=== PATIENT | female | born 1940 | race American Indian/Alaskan Native ===

== ENCOUNTER 2017-12-16 06:01 | Day surgery (SDC) | payer MEDICARE ==
[2017-12-09 09:41] VITALS: BMI 24.0
[2017-12-16] MEDS ORDERED: Dexamethasone 4 mg/1 ml ONE (07:23)
[2017-12-16] MEDS ORDERED: Liquid Adhesive TOP ONE (07:23)
[2017-12-16] MEDS ORDERED: Lidocaine 1% Inj (20ml) ONE (07:24)
[2017-12-16] MEDS ORDERED: Bupivacaine 0.5% Inj(30mL) ONE (07:24)
[2017-12-16] MEDS ORDERED: Propofol 10 mg/ml Inj (20 ML) ONE (07:27)
[2017-12-16] MEDS ORDERED: Midazolam 2 MG/2 ML VIAL ONE (07:31)
[2017-12-16 07:43] VITALS: RESP 18
[2017-12-16] MEDS ORDERED: Bupivacaine 0.5% Inj(30mL) IJ ONE (07:50)
[2017-12-16] MEDS ORDERED: Lidocaine 1% Inj (20ml) IJ ONE (07:50)
[2017-12-16] MEDS ORDERED: Dexamethasone 4 mg/1 ml IVP ONE (08:25)
[2017-12-16] MEDS ORDERED: Oxycodone/Acetaminophen 5/325 mg Tab PO PRN ×2 (08:33)
--- NOTE | 2017-12-16 08:35 | PCM.SURG1 ---
Surgeon's Initial Post Op Note - Surgeon's Notes Surgeon: Dr. Jaqcues Oakes, DPM Sizer Hand: Dr. Jamin Sanchez, PGY2; Dr. Idalmis Chavez, PGY1 Type of Anesthesia: IV Sedation, Local Anesthesia Administered By: Dr. Norwood Pre-Operative Diagnosis: Painful hammertoe of right fifth digit Operative Findings: See dictation report. M- 4-0 vicryl suture, 3-0 Prolene. I - Preop: 10 cc 1:1 mix of 0.5% marcaine plain, 1% lidocaine plain Post op: 0.5 cc dexamethasone 4mg/ml Post-Operative Diagnosis: Same Operation Performed: Arthroplasty of proximal phalanx right fifth digit Specimen/Specimens Removed: Bone and soft tissue of right fifth digit Estimated Blood Loss: EBL {In ML}: 1 Blood Products Given: N/A Drains Used: No Drains Post-Op Condition: Good Date of Surgery/Procedure: 12/16/17 Time of Surgery/Procedure: 08:35
[2017-12-16] MEDS ORDERED: Sodium Chloride 0.9% 1,000 ML IV SCH (08:45)
[2017-12-16 09:58] VITALS: TEMP 97.8
[2017-12-16 10:47] VITALS: BP 103/53; PULSE 49; O2SAT 99
--- NOTE | 2017-12-16 11:14 | RAD ---
Date of service: 12/16/2017 PROCEDURE: Right Foot Radiographs. HISTORY: s/p right foot surgery COMPARISON: None. FINDINGS: BONES: There has been resection of the distal aspect of the 5th proximal phalanx. The foot is otherwise unremarkable JOINTS: Normal. SOFT TISSUES: Normal. OTHER FINDINGS: None. IMPRESSION: There has been resection of the distal aspect of the 5th proximal phalanx. The foot is otherwise unremarkable
--- NOTE | 2017-12-16 12:52 | OP ---
PROCEDURE DATE: 12/16/2017 SURGEON: Jacques Oakes DPM. ASSISTANTS: Jamin Sanchez DPM, PGY-[address] Idalmis Chavez, PGY-1. ANESTHESIOLOGIST: Billy Norwood MD. ANESTHESIA: IV sedation with local. PREOPERATIVE DIAGNOSIS: Painful contracted hammertoe of right fifth digit. POSTOPERATIVE DIAGNOSIS: Painful contracted hammertoe of right fifth digit. NAME OF PROCEDURE: Right fifth digit arthroplasty of proximal phalanx. INDICATIONS: The patient is a 77-year-old with the above-mentioned diagnosis. The patient has exhausted all conservative treatment at this time and now opts for surgical intervention. The patient signed the consent after careful explanation of risks, benefits, complications and alternatives of surgical procedure. No guarantees were given nor implied. N.p.o. status was confirmed prior to taking the patient to the OR. PREOPERATIVE: The patient was brought into the operating room and placed on the operating room table in a supine position. A time-out was performed for identification of the correct patient and procedure. After induction of IV sedation, the patient received a total of 10 mL of 1:1 mixture of 0.5% Marcaine plain and 1% lidocaine plain in a local block fashion at the base of the right fifth digit. The right lower extremity was then prepped and draped in the normal sterile manner and the procedure began. An ankle tourniquet at a pressure setting of 250 mmHg was utilized for the entirety of the procedure. DESCRIPTION OF PROCEDURE: Procedure 1, attention was then turned to the right fifth digit where a hypertrophic callus formation was noted on the dorsolateral aspect of the digit and adductovarus positioning of the digit was appreciated. Using a #15 blade, an elliptical incision was made down to the level of subcutaneous tissue thereby ellipsing out the callus formation. This soft tissue was sent to pathology for pathological examination. The extensor tendon of the fifth digit was then identified and a transverse incision was made through the extensor tendon into the proximal interphalangeal joint of the digit. A 15 blade was then utilized to free up all soft tissue attachments to the head of the proximal phalanx including the collateral ligaments and the extensor tendon was dissected off of the proximal phalanx dorsally. Utilizing the bone cutter, a transverse cut was made across the proximal phalanx at the neck of the phalanx thereby excising the head of the proximal phalanx. This bone was then sent to Pathology for pathological examination. A bone cutter was also utilized to resect the proximal, lateral third of the base of the middle phalanx. This bone was also sent to Pathology for pathological examination. Both areas of bone were then rasped down to a smooth surface. The surgical site was then flushed with copious amounts of normal sterile saline. The extensor tendon was reapproximated using 3-0 Vicryl suture. The subcutaneous tissue was reapproximated using 3-0 Vicryl suture and the skin was reapproximated and well coapted using 4-0 nylon suture. The surgical site was then dressed with Betadine-soaked Adaptic, Betadine-soaked gauze, dry gauze, Kerlix and Coban and the procedure was completed. POSTOPERATIVE CONDITION: The patient tolerated the anesthesia and procedure well and was escorted to the Recovery Room with vital signs stable and neurovascular status intact to the right lower extremity. The patient is to remain weightbearing as tolerated and in a surgical shoe to the right foot and is to keep the dressings clean, dry and intact at all times. The patient will follow up with Dr. Oakes in his office on an outpatient basis. Jamin Sanchez DPM Jacques Oakes DPM NARGIS
== END 2017-12-16 11:15 | disposition home or self-care (01) ==
LOC: SDS 06:01
PROVIDERS: ATTEND Podiatrist
DX: M20.41 Other hammer toe(s) (acquired), right foot (principal); I10 Essential (primary) hypertension
CPT/HCPCS: 28285; 73630; 88304; 88311; J0690; J1100; J2250; J2704; J3010; J7030; J7120